=== PATIENT | female | born 1935 | race Caucasian/White ===

== ENCOUNTER 2021-01-10 21:15 | Inpatient (IN) | payer MEDICARE, OTHER ==
[~2021-01-10] VITALS: Ht 165.1 cm; Wt 66.2 kg
[2021-01-10 21:30] VITALS: BP 120/76
[2021-01-10] MEDS ORDERED: PAXIL20 M1 PO (21:55)
[2021-01-10] MEDS ORDERED: RISPERDAL0.5 MG PO (21:57)
[2021-01-10] MEDS ORDERED: KLONOPIN1 M1 PO (21:57)
[2021-01-10] MEDS ORDERED: TYLENOL EXTRA500 MG PO (22:10)
[2021-01-10] MEDS ORDERED: ACETAMINOPHEN325 M2 PO (22:12)
[2021-01-10] MEDS ORDERED: LISINOPRIL20 MG PO (22:13)
[2021-01-10] MEDS ORDERED: METOPROLOL SUCC25 M2 PO (22:16)
[2021-01-10] MEDS ORDERED: DAILY VALUE1 EACH PO (22:18)
[2021-01-10] MEDS ORDERED: NITROSTAT0.4 MG SL (22:21)
[2021-01-10] MEDS ORDERED: POLYETHYLENE GLY1 G1 MM (22:23)
[2021-01-10] MEDS ORDERED: PROAIR HFA8.5 GM INH (22:25)
[2021-01-11 06:53] LABS: CHOLESTEROL 182 mg/dL (<200); LDL CHOLESTEROL 101 mg/dL (9-159); TRIGLYCERIDES 136 mg/dl (<150)
[2021-01-11 07:21] VITALS: BP 108/63
[2021-01-11 07:36] LABS: VITAMIN D, 25-HYDROXY 41.3 ng/mL (30-100)
[2021-01-11 07:59] VITALS: BP 108/63
[2021-01-11 19:42] VITALS: BP 105/64
[2021-01-12 07:12] VITALS: BP 120/76
[2021-01-12 20:00] VITALS: BP 117/80
[2021-01-13 08:00] VITALS: BP 130/83
[2021-01-13 20:00] VITALS: BP 145/69
[2021-01-14 07:27] VITALS: BP 132/74
[2021-01-14 20:00] VITALS: BP 110/82
[2021-01-15 07:44] VITALS: BP 122/70
[2021-01-15 19:43] VITALS: BP 138/76
[2021-01-16 07:19] VITALS: BP 130/89
[2021-01-16 20:00] VITALS: BP 158/85
[2021-01-17 08:00] VITALS: BP 135/67
[2021-01-17 19:57] VITALS: BP 119/98
[2021-01-17 22:32] VITALS: BP 117/69
[2021-01-18 08:00] VITALS: BP 115/80
[2021-01-18 20:00] VITALS: BP 124/73
[2021-01-19 08:08] VITALS: BP 105/69
[2021-01-19 20:00] VITALS: BP 108/70
[2021-01-20 07:49] VITALS: BP 150/70
[2021-01-20 20:00] VITALS: BP 116/65
[2021-01-21 07:47] VITALS: BP 112/62
[2021-01-21 20:00] VITALS: BP 103/59
[2021-01-22 07:21] VITALS: BP 110/64
[2021-01-22 20:00] VITALS: BP 119/79
[2021-01-22 20:32] LABS: BILIRUBIN Negative (Negative); BLOOD 2+ (Negative); CLARITY Turbid (Clear); COLOR Dark Yellow (Yellow); GLUCOSE Negative (Negative); KETONE Negative (Negative); LEUKO ESTERASE 3+ (Negative); NITRITE Negative (Negative)
[2021-01-22 20:33] LABS: PH 8.5 (4.5-8.0)
[2021-01-22 21:03] LABS: BACTERIA 3+; EPITHELIAL CELLS TNTC
[2021-01-23 07:48] VITALS: BP 120/77
[2021-01-23 20:00] VITALS: BP 118/76
[2021-01-24 08:00] VITALS: BP 116/74
[2021-01-24 20:00] VITALS: BP 119/73
[2021-01-25 07:02] VITALS: BP 108/68
[2021-01-25 19:33] VITALS: BP 140/82
[2021-01-26 07:18] VITALS: BP 110/80
[2021-01-26 20:00] VITALS: BP 152/87
[2021-01-27 07:23] VITALS: BP 111/60
[2021-01-27 20:00] VITALS: BP 112/71
[2021-01-28 07:17] VITALS: BP 114/74
[2021-01-28 19:05] VITALS: BP 111/84
[2021-01-29 07:48] VITALS: BP 115/75
[2021-01-29 20:00] VITALS: BP 122/67
[2021-01-30 06:36] LABS: BASO # 0.1 10*3/uL (0.0-0.1); BASO % 1.3 % (0.0-1.0); EOS # 0.5 10*3/uL (0.0-0.4); EOS % 7.3 % (1.0-4.0); HEMATOCRIT 41.7 % (37.0-47.0); LYMPH # 1.9 10*3/uL (1.3-4.4); LYMPH % 30.9 % (27.0-41.0); MEAN CELL VOLUME 92.7 fl (81.0-99.0); MEAN CORPUSCULAR HGB 29.6 pg (27.0-31.0); MEAN CORPUSCULAR HGB CONC 31.9 g/dl (33.0-37.0); MEAN PLATELET VOLUME 9.4 fl (9.6-12.3); MONO % 15.3 % (3.0-9.0); NEUT # 2.8 10*3/uL (2.3-7.9); PLATELET COUNT AUTOMATED 275 10*3/uL (130-400); RED CELL DISTRI WIDTH 13.3 % (0-14.5); WHITE BLOOD COUNT 6.2 10*3/uL (4.8-10.8)
[2021-01-30 07:19] LABS: BUN 14 mg/dl (7-24); CHLORIDE 108 mmol/L (98-107); CREATININE 0.79 mg/dL (0.55-1.02); POTASSIUM 3.6 mmol/L (3.5-5.1); SODIUM 140 mmol/L (136-145)
[2021-01-30 07:26] VITALS: BP 136/70
[2021-01-30 20:00] VITALS: BP 108/59
[2021-01-31 08:00] VITALS: BP 130/86
[2021-01-31 22:00] VITALS: BP 107/66
[2021-02-01 07:33] VITALS: BP 123/69
[2021-02-01] MEDS ORDERED: CLONAZEPAM1 MG PO (10:42)
[2021-02-01] MEDS ORDERED: TRIAZOLAM0.125 MG PO (10:42)
[2021-02-01] MEDS ORDERED: ZIPRASIDONE HCL80 M1 PO (10:42)
[2021-02-01] MEDS ORDERED: RIVASTIGMINE T1.5 M1 PO (10:42)
[2021-02-01] MEDS ORDERED: KLONOPIN2 M1 PO (10:42)
[2021-02-01] MEDS ORDERED: TRINTELLIX20 MG PO (10:42)
[2021-02-01] MEDS ORDERED: METOPROLOL SUCC25 M2 PO (14:20)
[2021-02-01 20:00] VITALS: BP 116/78
[2021-02-02 08:04] VITALS: BP 110/75
== END 2021-02-02 08:32 | DRG 881 ==
LOC: 3N 21:15
PROVIDERS: Nurse Practitioner Women's Health; Registered Nurse; ADMIT Psychiatry & Neurology Psychiatry; ATTEND Psychiatry & Neurology Psychiatry
DX: F32.9 Major depressive disorder, single episode, unspecified (principal); F63.81 Intermittent explosive disorder; G30.9 Alzheimer's disease, unspecified; F25.9 Schizoaffective disorder, unspecified; F02.80 Dementia in other diseases classified elsewhere, unspecified severity, without behavioral disturbance, psychotic disturbance, mood disturbance, and anxiety; F22 Delusional disorders; F41.9 Anxiety disorder, unspecified; G47.33 Obstructive sleep apnea (adult) (pediatric); R00.1 Bradycardia, unspecified; R73.9 Hyperglycemia, unspecified; E83.41 Hypermagnesemia; I10 Essential (primary) hypertension; R13.10 Dysphagia, unspecified; E78.5 Hyperlipidemia, unspecified; Z88.8 Allergy status to other drugs, medicaments and biological substances; Z79.1 Long term (current) use of non-steroidal anti-inflammatories (NSAID); Z79.899 Other long term (current) drug therapy